=== PATIENT | female | born 1960 | race Caucasian/White ===

== ENCOUNTER → 2017-10-06 | Day surgery (SDC) | payer BC ==
[~2017-10-06] MED LIST: ACETAMINOPHEN 1000 MG/100 ML IV ONE; ANTACID CALCIU215 MG PO; BUPIVACAINE 0.25% 30ML SDV INJ ONE; CEFTRIAXONE SOD 1 GM VIAL IM ONE; DEXAMETHASONE SOD PHOS INJ 4 MG/ML VIAL ONE; FENTANYL CITRATE/PF 100MCG/2 ML INJ ONE; GLYCOPYRROLATE INJ 1MG/ 5 ML SYR ONE; HYDRALAZINE HCL 20 MG/ML VIAL ONE; HYDROMORPHONE 2MG/ML INJ ONE; IOPAMIDOL 610MG/1ML 300 MG/ML VIAL IV ONE; LABETALOL HCL IV 5 MG/ML 20ML MDV ONE; LIDOCAINE HCL 2% LOCAL INJ 5 ML SDV VIAL INJ ONE; METAXALONE800 MG PO; MIDAZOLAM HCL 2 MG/2 ML VIAL ONE; MORPHINE SULFATE INJ 10 MG/ML ONE; MULTI-VITAMIN1 EACH PO; NEOSTIGMINE 5 MG/5ML SYR ONE; NORCO 5-325 TA1 EACH PO; ONDANSETRON HCL INJ 2 MG/ML VIAL ONE; PROPOFOL IV EMULSION 10 MG/ML 20 ML VIAL ONE; ROCURONIUM BROMIDE 10 MG/ML 5ML VIAL ONE; SEVOFLURANE INHAL SOLN 250 ML PEN BTL ONE; TYLENOL WITH C1 EACH PO; ULTRAM 50MG50 MG PO; VITAMIN D35000 UNIT PO
[2017-10-06 13:08] LABS: BASOPHILS % 0.4 % (0.0-1.0); EOSINOPHILS # (AUTO) 0.2 (0.0-0.4); EOSINOPHILS % 5.2 % (0.0-6.0); HEMATOCRIT 40.7 % (34.2-44.1); HEMOGLOBIN 13.9 g/dL (12.0-16.0); LYMPHOCYTES # (AUTO) 0.8 (1.0-3.2); LYMPHOCYTES % 17.9 % (18.0-39.1); MEAN CORPUSCULAR HEMOGLOBIN 30.6 pg (28-32); MEAN CORPUSCULAR HGB CONC 34.2 g/dL (31-35); MEAN CORPUSCULAR VOLUME 89.6 fL (81-99); MONOCYTES # (AUTO) 0.4 (0.2-0.8); MONOCYTES % 7.8 % (4.4-11.3); NEUTROPHILS # (AUTO) 3.1 (2.1-6.9); NEUTROPHILS % 68.5 % (38.7-80.0); PLATELET COUNT 253 x10e3/uL (140-360); RED BLOOD COUNT 4.54 x10e6/uL (3.6-5.1)
[2017-10-06 13:24] LABS: BLOOD UREA NITROGEN 18 mg/dL (7-26); BUN/CREATININE RATIO 23 (6-25); CALCIUM 9.5 mg/dL (8.4-10.2); CARBON DIOXIDE 23 mmol/L (22-29); CHLORIDE 110 mmol/L (98-107); EST GLOMERULAR FILTRATION RATE > 60 ML/MIN (60-); GLUCOSE 83 mg/dL (74-118); SODIUM 143 mmol/L (136-145)
[2017-10-06 16:08] LABS: ALANINE AMINOTRANSFERASE 42 IU/L (0-55); ALBUMIN 3.5 g/dL (3.5-5.0); ALBUMIN/GLOBULIN RATIO 1.2 (0.8-2.0); ALKALINE PHOSPHATASE 63 IU/L (40-150); ANION GAP 14.1 mmol/L (8-16); BLOOD UREA NITROGEN 17 mg/dL (7-26); BUN/CREATININE RATIO 22 (6-25); CALCIUM 8.8 mg/dL (8.4-10.2); CARBON DIOXIDE 22 mmol/L (22-29); CHLORIDE 108 mmol/L (98-107); CREATININE, SERUM 0.78 mg/dL (0.57-1.11); EST GLOMERULAR FILTRATION RATE > 60 ML/MIN (60-); GLUCOSE 126 mg/dL (74-118); POTASSIUM 4.1 mmol/L (3.5-5.1); SODIUM 140 mmol/L (136-145)
--- NOTE | 2017-10-06 16:14 | Operative Report ---
DATE OF PROCEDURE: October 06, 2017 PREOPERATIVE DIAGNOSIS: Cholecystitis and cholelithiasis. Rule out common bile duct stones. POSTOPERATIVE DIAGNOSIS: Cholecystitis, cholelithiasis and choledocholithiasis. OPERATION PERFORMED: Laparoscopic cholecystectomy and intraoperative cholangiogram. ASSISTANTS: Dr. Lele Azevedo and JA Alan. ANESTHESIA: General endotracheal. COMPLICATIONS: None. ESTIMATED BLOOD LOSS: Minimal. DESCRIPTION OF PROCEDURE: With the patient lying in bed in the supine position under good general endotracheal anesthesia, the abdomen was prepped with Betadine solution and draped in the usual manner. Veress needle was introduced into the umbilicus, and pneumoperitoneum was established without any difficulty. An 11-mm trocar was placed into the umbilicus, and a 10-mm video laparoscope was placed into the intra-abdominal cavity. Video laparoscopy at this point revealed the patient had multiple adhesions to the right upper quadrant, mid abdomen and lower abdomen from her previous surgery. A 5-mm trocar was then placed in the left upper quadrant, and all the adhesions were taken down so that we could get access to the right upper quadrant. Hemostasis was ascertained. Three more 5-mm trocars were placed in the right subcostal region. Further laparoscopy at this point revealed the gallbladder to be plastered up against the duodenum and the fundus of the stomach, and all of these adhesions were slowly and carefully taken down. The peritoneum overlying the neck of the gallbladder was then opened, and the cystic duct was identified. The cystic duct was followed to its junction with the common duct. The cystic duct was then circumferentially dissected. The common duct was rather large in size, and the patient had abnormal liver function tests, so we decided that she needed to have a cholangiogram. A clip was then placed at the neck of the gallbladder, and a small opening was made into the cystic duct. Upon opening the cystic duct, a couple of small stones were retrieved from the cystic duct itself. After this was done, a cholangiocath was then introduced into the cystic duct. Using fluoroscopy, half-strength dye was injected into the common bile duct that showed that there were at least 2 filling defects in the distal common duct representing common duct stones. The cholangiocath was then removed, and the cystic duct was then ligated with #0 PDS Endoloop and a clip. The cystic artery was then doubly clipped and divided. The gallbladder was then slowly and carefully taken off the liver bed using the cautery scissors, and perfect hemostasis was ascertained. The gallbladder was then grasped through the umbilical port and removed without any difficulty. Video laparoscopy was then again carried out. The liver bed was found to be perfectly dry. All of the excess fluid was aspirated. The pneumoperitoneum was evacuated, and all the trocars were removed under direct vision. The fascia at the umbilicus was then closed with a lfhvca-um-sthjj of #0 Vicryl. All layers were infiltrated on the way out with a solution of 1/4 percent Marcaine. Subcutaneous tissue was approximated with 3-0 Vicryl, and the skin was closed with subcuticular 5-0 Vicryl. Benzoin, Steri-Strips and Band-Aids were applied. The sponge, lap and needle count was correct. The patient tolerated the procedure well and returned to the recovery room in stable condition. She will be referred to a manufacturing development engineer to proceed to have an ERCP and removal of the retained common duct stones. Job#: [id number]
--- NOTE | 2017-10-06 17:31 | Diagnostic Imaging Report ---
PROCEDURE: INTRAOPERATIVE CHOLANGIOGRAM COMPARISON: Abdominal ultrasound [id number].. INDICATIONS: Patient had nausea and vomiting and right upper quadrant pain. Patient had intraoperative cholangiogram performed prior to cholecystectomy. TECHNIQUE: Intraoperative cholangiogram was performed by Dr. Ervin Azevedo. 4 abdominal spot radiographs from the procedure were made available for evaluation. Fluoro time: 25 sec Area dose product: 213.49 cGycm2 Cumulative air kerma: 13.08 mGy FINDINGS:Intra-Op cholangiogram was performed. The distention of the right and left hepatic ducts without filling defect. 2 small filling defects in the distal common bile duct. IMPRESSION: 2 small filling defect in the distal common bile duct, likely intraductal stones. Dictated by: Kiko Jacobo M.D. on 10/06/2017 at 17:39 Electronically approved by: Kiko Jacobo M.D. on 10/06/2017 at 17:39
== END | disposition home or self-care (01) ==
LOC: OR 11:59
PROVIDERS: ATTEND Surgery
DX: K80.64 Calculus of gallbladder and bile duct with chronic cholecystitis without obstruction (principal); M19.90 Unspecified osteoarthritis, unspecified site; H91.90 Unspecified hearing loss, unspecified ear; Z87.891 Personal history of nicotine dependence
CPT/HCPCS: 36415; 47563; 74300; 80053; 85025; 88304; C1766; J0360; J0696; J1100; J1170; J2001; J2250; J2270; J2405; J3490; Q9967; 80048

== ENCOUNTER → 2018-04-05 | Outpatient (CLI) | payer BC ==
[~2018-04-05] MED LIST changes: -ACETAMINOPHEN 1000 MG/100 ML IV ONE; -BUPIVACAINE 0.25% 30ML SDV INJ ONE; -CEFTRIAXONE SOD 1 GM VIAL IM ONE; -DEXAMETHASONE SOD PHOS INJ 4 MG/ML VIAL ONE; -FENTANYL CITRATE/PF 100MCG/2 ML INJ ONE; -GLYCOPYRROLATE INJ 1MG/ 5 ML SYR ONE; -HYDRALAZINE HCL 20 MG/ML VIAL ONE; -HYDROMORPHONE 2MG/ML INJ ONE; -IOPAMIDOL 610MG/1ML 300 MG/ML VIAL IV ONE; -LABETALOL HCL IV 5 MG/ML 20ML MDV ONE; -LIDOCAINE HCL 2% LOCAL INJ 5 ML SDV VIAL INJ ONE; -MIDAZOLAM HCL 2 MG/2 ML VIAL ONE; -MORPHINE SULFATE INJ 10 MG/ML ONE; -NEOSTIGMINE 5 MG/5ML SYR ONE; -ONDANSETRON HCL INJ 2 MG/ML VIAL ONE; -PROPOFOL IV EMULSION 10 MG/ML 20 ML VIAL ONE; -ROCURONIUM BROMIDE 10 MG/ML 5ML VIAL ONE; -SEVOFLURANE INHAL SOLN 250 ML PEN BTL ONE
--- NOTE | 2018-04-05 12:22 | Diagnostic Imaging Report ---
TECHNIQUE: Magnetic resonance imaging of the LEFT tibia and fibula was performed WITHOUT injected contrast. HISTORY: Osteoporosis, history of tibial fracture in 2014, pain lower leg] ankle COMPARISON: None available. FINDINGS: BONES: The bone marrow signal is slightly heterogeneous. Subtle amorphous focal bone marrow edema at the distal tibial diaphysis (series 5 image 8 and series 6 image 16), no associated fracture line. This signal seems to correlate with the provided history. SOFT TISSUES: Minimal nonspecific superficial anterior soft tissue edema. IMPRESSION: Distal tibial diaphyseal bone marrow signal compatible with an evolving stress/insufficiency reaction, no discrete fracture at this time. Signed by: Dr. Amos Cobos D.O., M.M.M. on 04/05/2018 12:19 PM
== END ==
LOC: MRI 09:46
PROVIDERS: ATTEND Family Medicine
DX: M79.662 Pain in left lower leg (principal); M81.0 Age-related osteoporosis without current pathological fracture; Z87.310 Personal history of (healed) osteoporosis fracture; Z87.81 Personal history of (healed) traumatic fracture

== ENCOUNTER → 2018-08-05 | Day surgery (SDC) | payer BC ==
--- NOTE | 2018-08-04 10:45 | Diagnostic Imaging Report ---
PROCEDURE: Frontal and lateral views of the chest. COMPARISON: CT Chest 08/25/2014. INDICATIONS: PREOPERATIVE CHEST XRAY FOR FOOT SURGERY FINDINGS: Lines/tubes: None. Lungs: There is no evidence of pneumonia or pulmonary edema. Ill defined opacity is noted in the right upper lung. Pleura: There is no pleural effusion or pneumothorax. Heart and mediastinum: The cardiomediastinal silhouette is unremarkable. Bones: No acute bony abnormality. IMPRESSION: No acute radiographic abnormality. Indeterminate ill defined opacity in the right upper lung. Note is made of an opacity at this location on CT from 08/25/2014, for which follow-up was suggested. Therefore, chest CT is suggested for further evaluation. Dictated by: BHANU CANTRELL M.D. on 08/04/2018 at 10:54 Electronically approved by: BHANU CANTRELL M.D. on 08/04/2018 at 10:54
[~2018-08-05] MED LIST changes: +ACETAMINOPHEN/CODEINE 300MG - 30MG TAB ONE; +BUPIVACAINE HCL 0.5% INJ 30 ML VIAL INJ ONE; +CEFAZOLIN SOD 1 GM VIAL ONE; +DEXAMETHASONE SOD PHOS INJ 4 MG/ML VIAL ONE; +FENTANYL CITRATE/PF 100MCG/2 ML INJ ONE; +ISOFLURANE INHAL SOLN 250 ML BTL INH ONE; +MIDAZOLAM HCL 2 MG/2 ML VIAL ONE; +MORPHINE SULFATE 2 MG/ML SYR ONE; +ONDANSETRON HCL INJ 2 MG/ML VIAL IV ONE; +ONDANSETRON HCL INJ 2 MG/ML VIAL ONE; +PROLIA60 MG/1 ML SQ
--- OUTSIDE RECORDS SUMMARY | 2018-08-05 05:34 | XMS REPORT ---
Author Author [facility] Address Unknown Phone Unavailable Care Team Providers Care Artist And Repertoire Manager Name Role Phone Hemanth MINA Unavailable Unavailable SHAQ ANDERSON Unavailable Unavailable Franny AZEVEDO Unavailable Unavailable JOSIAH ANDERSON Unavailable Unavailable Problems This patient has no known problems. Allergies, Adverse Reactions, Alerts This patient has no known allergies or adverse reactions. Medications This patient has no known medications. Results Test Description Test Time Test Comments Text Results Atomic Results Result Comments CHEST 2 VIEWS 2018-08-04 10:54:00 [place] [address] Patient Name: NENA WATKINS MR #: [id number] : 1960 Age/Sex: 58/F Req #: [id number] Adm Physician: Ordered by: Hemanth MINA DPM Report #: [id number] Location: OR Room/Bed: Procedure: [id number] DX/CHEST 2 VIEWS Exam Date: Exam Time: REPORT STATUS: Signed PROCEDURE: Frontal and lateral views of the chest. COMPARISON: CT Chest 08/25/2014. INDICATIONS: PREOPERATIVE CHEST XRAY FOR FOOT SURGERY FINDINGS: Lines/tubes: None. Lungs: There is no evidence of pneumonia or pulmonary edema. Ill defined opacity is noted in the right upper lung. Pleura: There is no pleural effusion or pneumothorax. Heart and mediastinum: The cardiomediastinal silhouette is unremarkable. Bones: No acute bony abnormality. IMPRESSION: No acute radiographic abnormality. Indeterminate ill defined opacity in the right upper lung. Note is made of an opacity at this location on CT from 08/25/2014, for which follow-up was suggested. Therefore, chest CT is suggested for further evaluation. Dictated by: BAHNU CANTRELL M.D. on 08/04/2018 at 10:54 Electronically approved by: BHANU CANTRELL M.D. on 08/04/2018 at 10:54 Dictated By: BHANU CANTRELL MD 105 Transcribed By: CHELA on 08/04/18 105 COPY TO: Hemanth MINA DPM MRI TIB/FIB LEFT WO 2018-04-05 12:12:00 [place] [address] Patient Name: NENA WATKINS MR #: [id number] : 1960 Age/Sex: 57/F Req #: [id number] Adm Physician: Ordered by: SHAQ ANDERSON DO Report #: [id number] Location: MRI Room/Bed: Procedure: [id number] MRI/MRI TIB/FIB LEFT WO Exam Date: Exam Time: REPORT STATUS: Signed TECHNIQUE: Magnetic resonance imaging of the LEFT tibia and fibula was performed WITHOUT injected contrast. HISTORY: Osteoporosis, history of tibial fracture in 2013, pain lower leg] ankle COMPARISON: None available. FINDINGS: BONES: The bone marrow signal is slightly heterogeneous. Subtle amorphous focal bone marrow edema at the distal tibial diaphysis (series 5 image 8 and series 6 image 16), no associated fracture line. This signal seems to correlate with the provided history. SOFT TISSUES: Minimal nonspecific superficial anterior soft tissue edema. IMPRESSION: Distal tibial diaphyseal bone marrow signal compatible with an evolving stress/insufficiency reaction, no discrete fracture at this time. Signed by: Dr. Amos Cobos D.O., M.M.M. on 04/05/2018 12:19 PM Dictated By: AMOS COBOS DO 1219 Transcribed By: JAZMYN on 04/05/18 1219 COPY TO: SHAQ ANDERSON DO CHOLANGIOGRAM INTROP [place] [address] Patient Name: NENA WATKINS MR #: [id number] : 1960 Age/Sex: 57/F Req #: [id number] Adm Physician: Ordered by: SASKIA AZEVEDO MD Report #: [id number] Location: OR Room/Bed: Procedure: [id number] DX/CHOLANGIOGRAM INTROP Exam Date: 10/06/17 Exam Time: 1328 REPORT STATUS: Signed PROCEDURE: INTRAOPERATIVE CHOLANGIOGRAM COMPARISON: Abdominal ultrasound 1213 2016.. INDICATIONS: Patient had nausea and vomiting and right upper quadrant pain. Patient had intraoperative cholangiogram performed prior to cholecystectomy. TECHNIQUE: Intraoperative cholangiogram was performed by Dr. Saskia Azevedo. 4 abdominal spot radiographs from the procedure were made available for evaluation. Fluoro time: 25 sec Area dose product: 213.49 cGycm2 Cumulative air kerma: 13.08 mGy FINDINGS: Intra-Op cholangiogram was performed. The distention of the right and left hepatic ducts without filling defect. 2 small filling defects in the distal common bile duct. IMPRESSION: 2 small filling defect in the distal common bile duct, likely intraductal stones. Dictated by: Kiko Rendon M.D. on 10/06/2017 at 17:39 Electronically approved by: Kiko Rendon M.D. on 10/06/2017 at 17:39 Dictated By: KIKO RENDON MD 38 Transcribed By: CHELA on 10/06/171738 COPY TO: SASKIA AZEVEDO MD MRI SPINE THORACIC WO [place] [address] Patient Name: NENA WATKINS MR #: [id number] : 1960 Age/Sex: 57/F Req #: [id number] Adm Physician: Ordered by: ANDERSON ANDREW DO Report #: [id number] Location: MRI Room/Bed: Procedure: [id number] MRI/MRI SPINE THORACIC WO Exam Date: 09/11/17 Exam Time: 1520 REPORT STATUS: Signed Examination: MRI of the Thoracic Spine without Contrast History:Mid back pain Comparison studies:MRI thoracic and lumbar spine August 18, 2014 Technique: Multiplanar multisequence MR images of the thoracic spine without contrast Intravenous contrast: None. Findings: These images were made available to me for interpretation on September 17, 2017. Curvature: Upper thoracic dextroscoliosis. Paraspinal soft tissues: Cholelithiasis, unchanged. Spinal cord: Normal in morphology and signal intensity. Vertebrae: Rounded partially STIR suppressed lesions in the T8 and T10 vertebral bodies which are stable since 2013 and favored to represent atypical hemangiomas. No fractures, infection or neoplasm. Mild degenerative height loss of the T11 vertebral body due to Schmorl's node deformity. Disk spaces: Mild multilevel degenerative disc disease. Disk herniations: None. Foramina: Patent. Spinal canal: Patent. Incidental findings: Right upper lobe 1.8 cm nodule which is similar to prior CT chest in 2013. Left kidney tiny cortical round hypointense lesions, which are stable since 2013 and probably represent small calcified cysts. IMPRESSION: 1. No new abnormality. No change from prior thoracic spine MRI performed August 18, 2014. 2. Upper thoracic dextroscoliosis without spinal cord signal abnormality or significant spinal canal stenosis. 3. Unchanged atypical T8 and T10 hemangiomata. 4. Persistent right upper lobe 1.8 cm nodule which is similar to prior CT chest in 2013. 5. Unchanged mild height loss of the T11 vertebral body due to Schmorl's node deformity. 6. Unchanged cholelithiasis. Signed by: Dr. Rin Velásquez M.D. on 09/17/2017 1:24 PM Dictated By: RIN CANNON MD Electronical ly Signed By: RIN CANNON MD on 09/17/17 1324 Transcribed By: JAZMYN on 09/17/17 1324 COPY TO: JOSIAH ANDERSON DO US ABDOMEN COMPLETE [place] [address] Patient Name: NENA WATKINS MR #: [id number] : 1960 Age/Sex: 57/F Req #: [id number] Adm Physician: Ordered by: SHAQ ANDERSON DO Report #: [id number] Location: Room/Bed: Procedure: [id number] US/US ABDOMEN COMPLETE Exam Date: Exam Time: REPORT STATUS: Signed PROCEDURE: ABDOMINAL ULTRASOUND COMPARISON: MRI, MRI ABDOMEN WOW, 08/30/2014, 13:20. INDICATIONS: Back Pain, Elevated Liver Enzymes FINDINGS: Liver: 13.4 cm. Normal hepatic parenchymal echogenicity. No focal mass. Main portal vein: 1.1 cm. Hepatopetal flow. Gallbladder: Several echogenic, shadowing mobile stones are noted in the gallbladder lumen, with the largest measuring approximately 2.8 cm. Small amount of sludge is also noted. No wall thickening or pericholecystic fluid. Common Bile Duct: 0.57 m. No echogenic filling defect. Sonographic Rueda's sign: Negative Right kidney: 11.6 cm. No solid or cystic mass, echogenic calculi, or hydronephrosis. Normal parenchymal echogenicity. Left kidney: 10.3 cm. No solid or cystic mass, echogenic calculi, or hydronephrosis. Normal parenchymal echogenicity. Spleen: 8.9 cm. No focal lesions. Pancreas: The visualized portions of the neck and proximal body are normal. Inferior vena cava: Normal. Aorta: Normal. Ascites: None. CONCLUSION: 1. cholelithiasis, without sonographic evidence of cholecystitis. No intra or extra hepatic biliary ductal dilation 2. Normal sonographic appearance of the liver, without focal lesion. Hemanth Mills M.D. Dictated by: Hemanth Mills M.D. on 09/09/2017 at 17:15 Electronically approved by: Hemanth Mills M.D. on 09/09/2017 at 17:15 Dictated By: HEMANTH MILLS MD 14 Transcribed By: CHELA on 09/09/171714 COPY TO: SHAQ ANDERSON DO
[2018-08-05 09:30] VITALS: BP 124/70
--- NOTE | 2018-08-05 13:30 | Operative Report ---
DATE OF PROCEDURE: August 05, 2018 SURGEON: Hemanth MINA DPM AUDITOR/QUALITY SURGEON: Luann BRASHER DPM PREOPERATIVE DIAGNOSES 1. Ganglion cyst, left foot. 2. Metatarsocuneiform exostosis, left foot. POSTOPERATIVE DIAGNOSES 1. Ganglion cyst, left foot. 2. Metatarsocuneiform exostosis, left foot. OPERATIVE PROCEDURES 1. Excision of ganglion cyst, left foot. 2. Metatarsocuneiform exostectomy, left foot. DETAILS OF PROCEDURE: Patient was placed on the OR table in the supine position. The left lower extremity was prepped and draped in the usual manner. A general anesthetic was administered and hemostasis accomplished using a pneumatic cuff set at 350 mmHg at thigh level. An incision approximately 4 cm in length was made on the dorsal aspect of the left foot made directly over the ganglion cyst. The incision was deepened. Two superficial nerves were identified, one retracted medially and one retracted laterally. The incision was then deepened, exposing the ganglion cyst, which was then isolated and removed in total. The periosteum and capsule over the metatarsocuneiform joint were opened with a linear incision and dissected away, both medially and laterally. This exposed the exostosis, which was removed with an osteotome and mallet and smoothed with a power bur and a hand rasp. The wound was then flushed with sterile saline solution. The capsule and periosteum were closed with 3-0 Vicryl, subcutaneous with 3-0 Vicryl and the skin with 4-0 nylon. Following the procedure, 9 mL of 0.5 Marcaine and 1 mL of Decadron were injected. A sterile compression dressing was then applied. At this time, the pneumatic cuff was released, and reflex hyperemia was observed to all digits. The patient tolerated the procedures and the anesthesia well and left the OR to recovery in good condition with vital signs stable. Job#: [id number] DIVYA
== END | disposition home or self-care (01) ==
LOC: OR 05:32
PROVIDERS: ATTEND Podiatrist Foot & Ankle Surgery
DX: M67.472 Ganglion, left ankle and foot (principal); M77.52 Other enthesopathy of left foot and ankle; M19.90 Unspecified osteoarthritis, unspecified site; M54.9 Dorsalgia, unspecified; F17.200 Nicotine dependence, unspecified, uncomplicated; Z88.2 Allergy status to sulfonamides; Z01.810 Encounter for preprocedural cardiovascular examination; Z01.818 Encounter for other preprocedural examination
CPT/HCPCS: 28090; 28104; 71046; 93005; J0690; J1100; J2250; J2270; J2405

== ENCOUNTER → 2020-09-04 | Outpatient (CLI) | payer BC ==
[~2020-09-04] MED LIST changes: -ACETAMINOPHEN/CODEINE 300MG - 30MG TAB ONE; -BUPIVACAINE HCL 0.5% INJ 30 ML VIAL INJ ONE; -CEFAZOLIN SOD 1 GM VIAL ONE; -DEXAMETHASONE SOD PHOS INJ 4 MG/ML VIAL ONE; -FENTANYL CITRATE/PF 100MCG/2 ML INJ ONE; -ISOFLURANE INHAL SOLN 250 ML BTL INH ONE; -MIDAZOLAM HCL 2 MG/2 ML VIAL ONE; -MORPHINE SULFATE 2 MG/ML SYR ONE; -ONDANSETRON HCL INJ 2 MG/ML VIAL IV ONE; -ONDANSETRON HCL INJ 2 MG/ML VIAL ONE
== END ==
LOC: MAMMO 08:07
PROVIDERS: ATTEND Internal Medicine
DX: Z12.31 Encounter for screening mammogram for malignant neoplasm of breast (principal)
CPT/HCPCS: 77067

== ENCOUNTER 2021-05-17 09:32 | Emergency (ER) | payer BC ==
[~2021-05-17] VITALS: Ht 162.6 cm; Wt 63.5 kg
[2021-05-17] MEDS ORDERED: ACETAMINOPHEN 325 MG TAB PO PRN (09:45)
[2021-05-17] MEDS ORDERED: METOCLOPRAMIDE HCL 10 MG/2ML VIAL IV ONE (09:45)
[2021-05-17] MEDS ORDERED: SODIUM CHLORIDE 0.9% 1000ML 1,000 ML IV SCH ×2 (09:45)
[2021-05-17] MEDS ORDERED: DIPHENHYDRAMINE HCL INJ 50 MG/ML VIAL IV ONE (09:45)
[2021-05-17 10:13] LABS: BASOPHILS % 0.2 % (0.0-1.0); HEMATOCRIT 35.1 % (34.2-44.1); HEMOGLOBIN 11.2 g/dL (12.0-16.0); LYMPHOCYTES # (AUTO) 0.3 (1.0-3.2); LYMPHOCYTES % 1.7 % (18.0-39.1); MEAN CORPUSCULAR HEMOGLOBIN 28.1 pg (28-32); MEAN CORPUSCULAR HGB CONC 31.9 g/dL (31-35); MONOCYTES # (AUTO) 1.2 (0.2-0.8); MONOCYTES % 6.9 % (4.4-11.3); NEUTROPHILS # (AUTO) 15.4 (2.1-6.9); NEUTROPHILS % 90.3 % (38.7-80.0); PLATELET COUNT 192 x10e3/uL (140-360); RED BLOOD COUNT 3.99 x10e6/uL (3.6-5.1); RED CELL DISTRIBUTION WIDTH 14.2 % (11.7-14.4)
[2021-05-17 10:27] LABS: ALBUMIN 2.5 g/dL (3.5-5.0); ALBUMIN/GLOBULIN RATIO 0.7 (0.8-2.0); ANION GAP 12.3 mmol/L (8-16); CALCIUM 8.8 mg/dL (8.4-10.2); CREATININE, SERUM 0.93 mg/dL (0.57-1.11); POTASSIUM 4.3 mmol/L (3.5-5.1)
[2021-05-17 10:48] LABS: CLARITY,URINE CLOUDY (CLEAR); COLOR,URINE YELLOW (YELLOW); KETONES,URINE NEGATIVE (NEGATIVE); LEUKOCYTE ESTERASE ,URINE 1+ (NEGATIVE); NITRITE,URINE NEGATIVE (NEGATIVE); PROTEIN,URINE DIPSTICK 2+ (NEGATIVE); URINE UROBILINOGEN 0.2 mg/dL (0.2 - 1)
[2021-05-17 11:03] LABS: BACTERIA,URINE MANY /HPF; EPITHELIAL CELLS,URINE FEW /LPF; RENAL EPITHELIAL CELLS,URINE MODERATE; WBC,URINE (MAN) >50 /HPF (0-5)
[2021-05-17] MEDS ORDERED: CEPHALEXIN500 M1 PO (11:52)
[2021-05-17 12:14] LABS: BAND NEUTROPHILS % (MANUAL) 3 %; LYMPHOCYTES % (MANUAL) 1 % (19-48); MONOCYTES % (MANUAL) 3 % (3.4-9.0); NEUTROPHILS % (MANUAL) 93 % (40-74); PLATELET ESTIMATE ADEQUATE; PLATELET MORPHOLOGY COMMENT NORMAL
[2021-05-17] MEDS ORDERED: CEFTRIAXONE 1 GM VIAL IV ONE (12:30)
[2021-05-17] MEDS ORDERED: CEFTRIAXONE 1 GM in SODIUM CHLORIDE 0.9% 50ML 50 ML IV ONE (12:30)
[2021-05-17 13:13] VITALS: BP 118/68
== END 2021-05-17 13:15 | disposition home or self-care (01) ==
LOC: ER 09:46
DX: N39.0 Urinary tract infection, site not specified (principal); Z88.2 Allergy status to sulfonamides; Z20.822 Contact with and (suspected) exposure to COVID-19
CPT/HCPCS: 36415; 71045; 80053; 81001; 83605; 85025; 87040; 87400; 99284; J0696; J1200; J2765; J7030; U0002

== ENCOUNTER → 2023-02-18 | Outpatient (CLI) | payer BC ==
[~2023-02-18] MED LIST changes: +CEPHALEXIN500 M1 PO
== END ==
LOC: MAMMO 11:33
PROVIDERS: ATTEND Internal Medicine
DX: Z12.31 Encounter for screening mammogram for malignant neoplasm of breast (principal)
CPT/HCPCS: 77067

== ENCOUNTER 2024-06-05 11:38 | Emergency (ER) | payer MEDICARE, BC ==
[~2024-06-05] VITALS: Ht 162.6 cm; Wt 63.5 kg
[2024-06-05 11:38] VITALS: TEMP 98.5
[2024-06-05 12:12] LABS: BASOPHILS % 0.4 % (0.0-1.0); EOSINOPHILS # (AUTO) 0.6 (0.0-0.4); EOSINOPHILS % 8.7 % (0.0-6.0); HEMATOCRIT 41.7 % (34.2-44.1); HEMOGLOBIN 13.5 g/dL (12.0-16.0); LYMPHOCYTES # (AUTO) 0.9 (1.0-3.2); LYMPHOCYTES % 12.1 % (18.0-39.1); MEAN CORPUSCULAR HGB CONC 32.4 g/dL (31-35); MEAN CORPUSCULAR VOLUME 98.8 fL (81-99); MONOCYTES # (AUTO) 0.7 (0.2-0.8); NEUTROPHILS # (AUTO) 5.1 (2.1-6.9); NEUTROPHILS % 69.5 % (38.7-80.0); PLATELET COUNT 303 x10e3/uL (140-360); RED BLOOD COUNT 4.22 x10e6/uL (3.6-5.1); RED CELL DISTRIBUTION WIDTH 12.7 % (11.7-14.4); WHITE BLOOD COUNT 7.35 x10e3/uL (4.8-10.8)
[2024-06-05] MEDS: SODIUM CHLORIDE 0.9% 1000ML 1,000 ML IV STA (12:19)
[2024-06-05] MEDS: DEXAMETHASONE SOD PHOS 10 MG/1 ML VIAL IV ONE (12:19)
[2024-06-05 12:24] LABS: INR 0.89; PROTHROMBIN TIME 12.5 seconds (11.9-14.5)
[2024-06-05 12:25] LABS: PARTIAL THROMBOPLASTIN TIME 25.8 seconds (23.8-35.5)
[2024-06-05 12:34] LABS: ALBUMIN 3.9 g/dL (3.5-5.0); ALBUMIN/GLOBULIN RATIO 1.2 (0.8-2.0); ANION GAP 15.1 mmol/L (8-16); BILIRUBIN,TOTAL 0.3 mg/dL (0.2-1.2); CALCIUM 10.4 mg/dL (8.4-10.2); CREATININE, SERUM 1.05 mg/dL (0.57-1.11); MAGNESIUM 1.7 MG/DL (1.3-2.1); POTASSIUM 4.1 mmol/L (3.5-5.1); TOTAL PROTEIN 7.2 g/dL (6.5-8.1)
[2024-06-05] MEDS: LEVETIRACETAM 500MG/5ML VIAL 1,500 MG in SODIUM CHLORIDE 0.9% 100 ML IV ONE (12:38)
[2024-06-05 12:39] LABS: TROPONIN I 0.008 ng/mL (0-0.300)
[2024-06-05 13:50] VITALS: PULSE 91; RESP 14; O2SAT 100
[2024-06-05] MEDS ORDERED: IOPAMIDOL 370 MG/ML 100 ML INFUS..BTL INJ ONE (20:22)
== END 2024-06-05 13:55 | disposition other institution (70) ==
LOC: ER 11:50
DX: R51.9 Headache, unspecified (principal); I61.9 Nontraumatic intracerebral hemorrhage, unspecified; R22.0 Localized swelling, mass and lump, head; M54.9 Dorsalgia, unspecified; G89.29 Other chronic pain; R94.31 Abnormal electrocardiogram [ECG] [EKG]
CPT/HCPCS: 36415; 70450; 70496; 70498; 71045; 80053; 82550; 82948; 83735; 84484; 85025; 85610; 85730; 93005; 99284; J1100; J1953; J7030; J7050; Q9967

== ENCOUNTER → 2024-12-09 | Day surgery (SDC) | payer MEDICARE, BC ==
[2024-12-06 10:28] LABS: BASOPHILS % 0.4 % (0.0-1.0); EOSINOPHILS # (AUTO) 0.2 (0.0-0.4); HEMATOCRIT 39.2 % (34.2-44.1); HEMOGLOBIN 12.6 g/dL (12.0-16.0); LYMPHOCYTES # (AUTO) 0.9 (1.0-3.2); LYMPHOCYTES % 12.8 % (18.0-39.1); MEAN CORPUSCULAR HEMOGLOBIN 30.9 pg (28-32); MEAN CORPUSCULAR HGB CONC 32.1 g/dL (31-35); MEAN CORPUSCULAR VOLUME 96.1 fL (81-99); MONOCYTES # (AUTO) 0.6 (0.2-0.8); MONOCYTES % 8.4 % (4.4-11.3); NEUTROPHILS # (AUTO) 5.5 (2.1-6.9); PLATELET COUNT 229 x10e3/uL (140-360); RED BLOOD COUNT 4.08 x10e6/uL (3.6-5.1); RED CELL DISTRIBUTION WIDTH 13.2 % (11.7-14.4); WHITE BLOOD COUNT 7.27 x10e3/uL (4.8-10.8)
[2024-12-06 10:52] LABS: ANION GAP 11.4 mmol/L (8-16); CALCIUM 8.6 mg/dL (8.4-10.2); CREATININE, SERUM 0.79 mg/dL (0.57-1.11); POTASSIUM 4.4 mmol/L (3.5-5.1)
[~2024-12-09] MED LIST changes: +ABILIFY5 MG PO; +ACETAMINOPHEN 1000 MG/100 ML 0 ML IV ONE; +ACETAMINOPHEN 1000 MG/100 ML 100 ML IV ONE; +ALDACTONE25 MG PO; +CEFAZOLIN SODIUM 2 GM ONE; +COLACE100 MG/10 PO; +DEXAMETHASONE SOD PHOS INJ 4 MG/ML SDV ONE; +FAMOTIDINE 20 MG/2 ML VIAL IV ONE; +FENTANYL CITRATE/PF 100MCG/2 ML INJ ONE; +LEXAPRO20 MG PO; +LIDOCAINE HCL 2% LOCAL INJ 5 ML SDV VIAL INJ ONE; +LOSARTAN POTASS25 MG PO; +MIDAZOLAM HCL 2 MG/2 ML VIAL ONE; +ONDANSETRON HCL INJ 2MG/ML 2ML 2 MG/ML VIAL ONE; +PHENYLEPHRINE HCL 1% 10 MG/ML VIAL ONE; +PROPOFOL IV EMULSION 10 MG/ML 20 ML VIAL ONE; +SEVOFLURANE INHAL SOLN 250 ML PEN BTL ONE; +SODIUM CHLORIDE 0.9% 0 ML ONE; +TOPROL XL25 MG PO; +TYLENOL WITH CODEINE
[2024-12-09] MEDS: CEFAZOLIN SODIUM 0 GM ONE (07:37)
[2024-12-09] MEDS: LACTATED RINGER'S 1,000 ML ONE (07:38)
[2024-12-09 10:20] VITALS: TEMP 98.6
[2024-12-09 11:25] VITALS: BP 126/81; PULSE 79; RESP 16; O2SAT 99
== END | disposition home or self-care (01) ==
LOC: OR 06:49
PROVIDERS: ATTEND Podiatrist Foot Surgery
DX: G57.32 Lesion of lateral popliteal nerve, left lower limb (principal); Q66.89 Other specified congenital deformities of feet; M67.472 Ganglion, left ankle and foot; I11.0 Hypertensive heart disease with heart failure; I50.9 Heart failure, unspecified; I42.0 Dilated cardiomyopathy; I69.354 Hemiplegia and hemiparesis following cerebral infarction affecting left non-dominant side; M54.9 Dorsalgia, unspecified; F32.A Depression, unspecified; Z88.2 Allergy status to sulfonamides; Z01.810 Encounter for preprocedural cardiovascular examination; Z01.812 Encounter for preprocedural laboratory examination; Z01.818 Encounter for other preprocedural examination; Z79.899 Other long term (current) drug therapy; Z95.810 Presence of automatic (implantable) cardiac defibrillator; Z86.711 Personal history of pulmonary embolism; Z87.891 Personal history of nicotine dependence
CPT/HCPCS: 28116; 36415; 64704; 71046; 80048; 85025; 88304; 93005; J0131; J1100; J2003; J2371; J2405; J2704; J3010; J7121; J2250; J7050